=== PATIENT | male | born 1935 | race Caucasian/White ===

== ENCOUNTER → 2019-02-18 | Outpatient (CLI) | payer MEDICARE | END | disposition home or self-care (01) | LOC: PCVCCLINIC 14:41 | PROVIDERS: ATTEND Nuclear Medicine Nuclear Cardiology | DX: M80.88XG Other osteoporosis with current pathological fracture, vertebra(e), subsequent encounter for fracture with delayed healing (principal) | CPT/HCPCS: G0463 ==